=== PATIENT | male | born 1970 | race Caucasian/White ===

== ENCOUNTER 2017-05-29 20:10 | Emergency (ER) | payer SELFPAY ==
[~2017-05-29] VITALS: Ht 193 cm; Wt 81.6 kg
[2017-05-29] MEDS ORDERED: MORPHINE 4 MG/ML INJ. SYRINGE IVP ONE (20:30)
[2017-05-29] MEDS ORDERED: VANCOMYCIN HCL 1,000 MG in NS 250 ML IV ONE (20:30)
[2017-05-29] MEDS ORDERED: DIPHENHYDRAMINE INJ 50 MG/ML VIAL IVP ONE (20:30)
[2017-05-29 20:43] VITALS: BP_SYST 135
--- NOTE | 2017-05-29 20:45 | NUR ---
Placed in room 6. Placed on blood pressure machine and pulse oximeter. To gown for exam. Side rails up.
--- NOTE | 2017-05-29 20:48 | NUR ---
Patient AOx4, ambulatory, presents to ER with complaint of left hand redness, swelling, and pain 8/10 s/p injury. Patient states a tire and rim landed on left hand. No other symptoms or complaints at this time.
--- NOTE | 2017-05-29 20:50 | NUR ---
CHRISTINE Cooper at bedside for medical evaluation.
--- NOTE | 2017-05-29 21:00 | NUR ---
# 20 gauge angiocath placed to RAC. Use of asceptic technique. Opsite placed over site. Blood return noted. Blood for lab drawn from site. Flushed with 10 cc of normal saline. No evidence of infiltration noted. Patient tolerated well.
[2017-05-29 21:10] LABS: BASOPHILS # (AUTO) 0.1 K/uL (0.0-0.2); BASOPHILS % (AUTO) 0.7 % (0.0-2.0); EOSINOPHILS # (AUTO) 0.1 K/uL (0.0-0.4); EOSINOPHILS % (AUTO) 0.7 % (0.0-4.0); HEMATOCRIT 50.4 % (36-54); HEMOGLOBIN 16.3 g/dL (14.0-18.0); LYMPHOCYTES # (AUTO) 1.8 K/uL (1.0-5.5); LYMPHOCYTES % (AUTO) 18.6 % (20.5-51.5); MEAN CORPUSCULAR HEMOGLOBIN 30 pg (27-31); MEAN CORPUSCULAR HGB CONC 32 % (32-36); MEAN CORPUSCULAR VOLUME 91 fL (79.0-98.0); MONOCYTES # (AUTO) 0.9 K/uL (0.0-1.0); MONOCYTES % (AUTO) 8.8 % (1.7-9.3); NEUTROPHILS # (AUTO) 6.8 K/uL (1.8-7.7); NEUTROPHILS % (AUTO) 71.2 % (40.0-70.0); PLATELET COUNT (AUTO) 266 K/uL (130-430); RED BLOOD CELL COUNT(AUTO) 5.55 MIL/uL (4.2-6.2); RED CELL DISTRIBUTION WIDTH 12.5 % (9.0-15.0); WHITE BLOOD COUNT (AUTO) 9.7 K/uL (4.8-10.8)
[2017-05-29] MEDS ORDERED: VANCOMYCIN HCL 1000 MG/VIAL IV ONE (21:33)
[2017-05-29 21:42] LABS: CREATININE 0.96 mg/dL (0.55-1.30); POTASSIUM 3.8 mmol/L (3.5-5.1)
[2017-05-29 21:47] LABS: ALBUMIN 3.9 g/dL (3.4-4.8); TOTAL BILIRUBIN 0.9 mg/dL (0.0-1.0)
--- NOTE | 2017-05-29 22:10 | NUR ---
No adverse reactions noted after medication administration. Will continue to monitor.
[2017-05-29 23:59] VITALS: BP_SYST 132
--- NOTE | 2017-05-29 23:59 | NUR ---
Patient given written and verbal discharge instructions and verbalizes understanding. ER MD discussed with patient the results and treatment provided. Patient in stable condition. ID arm band removed. IV catheter removed intact and dressing applied, no active bleeding. Rx of Keflex, Bactrim, and Motrin given. Patient educated on pain management and to follow up with PMD. Pain Scale 0/10. Opportunity for questions provided and answered.
== END 2017-05-29 23:59 | disposition home or self-care (01) ==
LOC: SED 20:10
DX: L03.114 Cellulitis of left upper limb (principal); R03.0 Elevated blood-pressure reading, without diagnosis of hypertension
CPT/HCPCS: 36415; 73130; 80053; 83605; 85025; 87040; 96374; 96375; 99285; J1200; J2270; J3370; J7050